=== PATIENT | male | born 1965 | race Caucasian/White ===

== ENCOUNTER 2016-06-10 10:00 | Day surgery (SDC) | payer BC ==
[~2016-06-10] VITALS: Ht 177.8 cm; Wt 73.9 kg
[2016-06-10 10:38] VITALS: Ht 177.8 cm; Wt 73.9 kg
[2016-06-10 10:50] VITALS: BP 139/89; PULSE 59; RESP 19
[2016-06-10] MEDS ORDERED: MIDAZOLAM 1 MG/ML 2 ML INJ ONE ×2 (11:23)
[2016-06-10] MEDS ORDERED: FENTAnyl 50 MCG/ML VIAL ONE (11:23)
[2016-06-10 11:40] VITALS: BP 117/76; PULSE 65; RESP 19
--- NOTE | 2016-06-10 12:52 | GILP ---
DATE OF PROCEDURE: 06/10/2016 PROCEDURE: EGD with biopsy. SURGEON: Nathalie Ochoa MD INDICATION: A 50-year-old male undergoing this procedure to look for the recurrence of stomach canc er. He had stomach cancer for which he underwent surgery 2 years ago. The risk of the procedure, r elated and unrelated complications, and sedative risks explained and informed consent was obtained. DESCRIPTION OF PROCEDURE: The patient was brought to the GI lab, sedated with Versed 4 mg, fentany l 75 mcg. After optimal sedation, scope was passed with much ease into the esophagus which was tom sly within normal limits. The patient had a hemigastrectomy. Stomach mucosa revealed gastritis. H e had 1 staple at the anastomotic site entering to afferent and efferent loop, both appeared normal. The anastomotic site appeared slightly edematous. Biopsy was taken. It was friable. Biopsies al so were taken from the stomach. Retroversion done, it was normal. Scope was straightened out and r emoved with good patient tolerance. IMPRESSION: 1. Normal esophagus. 2. Hemigastrectomy. 3. One staple identified at the anastomotic site. 4. Both normal afferent and efferent loops. PLAN: Review histopathology. In the interim empirically treat with PPI and we will follow him with periodic upper endoscopy every year for the first few years. Dictated By: NATHALIE FRIEND/SHELELY Conf#: [id number] DID#: [id number] CC: RADHA SANTIAGO MD; NATHALIE OCHOA MD;*EndCC*
== END 2016-06-10 13:43 | disposition home or self-care (01) ==
LOC: GIL 10:00
PROVIDERS: ATTEND Internal Medicine Gastroenterology
DX: Z85.028 Personal history of other malignant neoplasm of stomach (principal); K29.50 Unspecified chronic gastritis without bleeding
CPT/HCPCS: 43239; 88305; 88312; J2250; J3010; Z7610